=== PATIENT | female | born 1965 | race Two or more races ===

== ENCOUNTER 2020-09-11 15:04 | Outpatient (CLI) | payer OTHER ==
[~2020-09-11 15:04] MED LIST: DEPAKOTE ER250 MG BC
== END 2020-09-11 16:20 | disposition home or self-care (01) ==
LOC: OFIC 805 15:04
PROVIDERS: ATTEND Otolaryngology
DX: H93.11 Tinnitus, right ear (principal); H90.3 Sensorineural hearing loss, bilateral; H61.23 Impacted cerumen, bilateral

== ENCOUNTER 2021-07-12 08:00 | Outpatient (CLI) | payer OTHER | END 2021-07-12 08:30 | disposition home or self-care (01) | LOC: PPH VACUNA 08:00 | PROVIDERS: ATTEND Emergency Medicine Pediatric Emergency Medicine | DX: Z23 Encounter for immunization (principal) ==